=== PATIENT | male | born 1995 | race Caucasian/White ===

== ENCOUNTER 2016-07-18 12:15 | Emergency (ER) | payer BC ==
--- NOTE | ~2016-07-18 | CT101 ---
[facility] A Service [facility] RADIOLOGY TEXT RESULTS PATIENT: BONNIE EDWARDS LOCATION: SED : [birth year] UNIT #: [id number] AGE: [address]: Sonali Can APRN SEX: M ORDER DR: [id number] [address] [id number] MR#: [id number] Acc #: [id number] NAME: BONNIE EDWARDS : 1995 SEX: M STUDY DATE/TIME: 07/18/2016 12:36 UNIT: SED ROOM: STUDY DESCRIPTION: CT Maxillofacial Area Wo Cont Attending Physician: Sonali Can A.P.R.N. Ordering Physician: Sonali Chakraborty A.P.R.N. Primary Care Physician: Primary Care Physician No MEDICAL IMAGING REPORT This report is preliminary unless electronic signature is present. EXAM Maxillofacial CT INDICATIONS Left-sided jaw swelling and pain. 2-[address] duration. TECHNIQUE Maxill[address] without contrast. Coronal and sagittal reconstructions were obtained. This CT exam was performed with one or more of the following radiation dose reduction techniques: automatic exposure control, adjustment of mA and/or kV according to patient size, and iterative reconstruction. COMPARISON None available FINDINGS There is no fracture or dislocation of the mandible. No significant inflammation is identified around the mandible. No loculated fluid collections are identified, however sensitivity is diminished without the use of IV contrast. Paranasal sinuses are clear. Orbits are remarkable. IMPRESSION Negative maxillofacial CT. No findings to account for the patient's symptoms. Dictated by... Hal Madison M.D. THIS IS AN ELECTRONICALLY VERIFIED REPORT [facility] A Service [facility] RADIOLOGY TEXT RESULTS PATIENT: BONNIE EDWARDS LOCATION: SED : [birth year] UNIT #: [id number] AGE: [address]: Sonali Can APRN SEX: M ORDER DR: Hal Madison M.D. at 07/19/2016 2:09 PM RPBill/martin TD: 07/18/2016 19:13 JOB #: [id number] MEDICAL IMAGING REPORT Page 1 of 1
[~2016-07-18 12:15] MED LIST: KEFLEX500 M1 PO; NO MEDICATIONS
== END 2016-07-18 13:03 | disposition home or self-care (01) ==
LOC: SED 12:15
DX: S00.83XA Contusion of other part of head, initial encounter (principal); K11.5 Sialolithiasis; X58.XXXA Exposure to other specified factors, initial encounter; Y92.9 Unspecified place or not applicable
CPT/HCPCS: 70486; 99284